=== PATIENT | female | born 1970 | race Caucasian/White ===

== ENCOUNTER 2017-06-26 17:47 | Day surgery (SDCO) | payer OTHER ==
[~2017-06-26] VITALS: Ht 147.3 cm; Wt 58.2 kg
[2017-06-26 18:39] LABS: INR 0.97 (0.9-1.2); PTT 32.6 SECONDS (24.3-32.1)
[2017-06-26 18:51] LABS: BASOPHIL 0.1 % (0-2); EOSINOPHIL 0 % (0-5); HGB 14.6 g/dl (12.5-16.0); LYMPHOCYTE 5.4 % (15-48); MCH 29.9 pg (25.0-31.0); MCV 88.1 fL (78.0-100.0); MONOCYTE 3.5 % (0-12); MPV 10.2 fL (6.0-9.5); PLT 375 K/uL (150-400); RBC 4.88 M/uL (4.20-5.40); RDW 14.5 % (11.5-14.0); WBC 17.5 K/uL (4.0-10.5)
[2017-06-26 19:38] LABS: ALBUMIN 4.2 g/dL (3.5-5.0); CREATININE 0.7 mg/dL (0.5-1.0); GLOBULIN (CALCULATION) 3.7 g/dL (2.2-4.2); MAGNESIUM 2.09 mg/dL (1.40-2.10); TOTAL PROTEIN 7.9 g/dL (6.4-8.3)
[2017-06-26 19:40] LABS: CKMB 2.25 ng/mL (0.97-4.94); MYOGLOBIN 35 ng/mL (26-65); TROPONIN T < 0.010 ng/mL
[2017-06-26 19:41] LABS: PRO-BNP 3616 pg/mL (0-125)
[2017-06-26 19:59] LABS: AMYLASE 36 U/L (28-100); LIPASE 19 U/L (13-60)
[2017-06-26 20:15] LABS: BILIRUBIN NEGATIVE (NEGATIVE); BLOOD NEGATIVE Ery/uL (NEGATIVE); CLARITY CLEAR (CLEAR); COLOR YELLOW (YELLOW); GLUCOSE (U) NORMAL (NORMAL); KETONE (U) NEGATIVE (NEGATIVE); LEUKOCYTES NEGATIVE Leu/uL (NEGATIVE); NITRITE NEGATIVE (NEGATIVE); PROTEIN NEGATIVE (NEGATIVE); SPECIFIC GRAVITY 1.015 (1.001-1.030); UROBILINOGEN 0.2 mg/dL (0.2-1.0)
[2017-06-27 06:17] LABS: BASOPHIL 0.2 % (0-2); EOSINOPHIL 0 % (0-5); HCT 41.9 % (37.0-47.0); HGB 14.1 g/dl (12.5-16.0); LYMPHOCYTE 16.2 % (15-48); MCH 29.5 pg (25.0-31.0); MCHC 33.7 g/dL (32.0-36.0); MCV 87.7 fL (78.0-100.0); MONOCYTE 4.4 % (0-12); MPV 9.9 fL (6.0-9.5); NEUTROPHIL 79.2 % (41-80); PLT 361 K/uL (150-400); RBC 4.78 M/uL (4.20-5.40); RDW 14.6 % (11.5-14.0); WBC 12.8 K/uL (4.0-10.5)
[2017-06-27 06:37] LABS: INR 1.19 (0.9-1.2); PROTHROMBIN TIME 14.2 SECONDS (11.4-13.2); PTT 36.2 SECONDS (24.3-32.1)
[2017-06-27 06:45] LABS: ALBUMIN 3.9 g/dL (3.5-5.0); BILIRUBIN - TOTAL 1.2 mg/dL (0.1-1.0); GLOBULIN (CALCULATION) 3.3 g/dL (2.2-4.2); MAGNESIUM 2.14 mg/dL (1.40-2.10); PHOSPHORUS 4.9 mg/dL (2.7-4.5); POTASSIUM 3.7 mmol/L (3.5-5.1); TOTAL PROTEIN 7.2 g/dL (6.4-8.3)
[2017-06-28 06:41] LABS: BASOPHIL 0.4 % (0-2); HCT 31.4 % (37.0-47.0); HGB 10.2 g/dl (12.5-16.0); LYMPHOCYTE 44.2 % (15-48); MCH 29.7 pg (25.0-31.0); MCHC 32.5 g/dL (32.0-36.0); MCV 91.3 fL (78.0-100.0); MPV 9.5 fL (6.0-9.5); NEUTROPHIL 46.4 % (41-80); PLT 236 K/uL (150-400); RBC 3.44 M/uL (4.20-5.40); RDW 14.6 % (11.5-14.0); WBC 5.6 K/uL (4.0-10.5)
[2017-06-28 07:02] LABS: ALBUMIN 2.8 g/dL (3.5-5.0); BILIRUBIN - TOTAL 0.5 mg/dL (0.1-1.0); CREATININE 0.9 mg/dL (0.5-1.0); GLOBULIN (CALCULATION) 2.5 g/dL (2.2-4.2); MAGNESIUM 2.2 mg/dL (1.40-2.10); PHOSPHORUS 3.8 mg/dL (2.7-4.5); POTASSIUM 3.4 mmol/L (3.5-5.1); TOTAL PROTEIN 5.3 g/dL (6.4-8.3)
== END 2017-06-28 10:05 | disposition home or self-care (01) ==
LOC: FER 17:47 → FMS 06-27 01:11
PROVIDERS: Emergency Medicine Emergency Medical Services; Internal Medicine; ADMIT Internal Medicine
DX: K35.80 Unspecified acute appendicitis (principal); I10 Essential (primary) hypertension; M19.90 Unspecified osteoarthritis, unspecified site; F41.9 Anxiety disorder, unspecified; K21.9 Gastro-esophageal reflux disease without esophagitis; F17.210 Nicotine dependence, cigarettes, uncomplicated; Z86.73 Personal history of transient ischemic attack (TIA), and cerebral infarction without residual deficits; Z88.0 Allergy status to penicillin; Z98.51 Tubal ligation status; Z79.2 Long term (current) use of antibiotics; Z79.899 Other long term (current) drug therapy
CPT/HCPCS: 36415; 71010; 80053; 81003; 82150; 82550; 82553; 83605; 83690; 83735; 83874; 83880; 84100; 84484; 85025; 85610; 85730; 88304; 93005; 94010; 97161; 97530-GP; C9113; G0378; J1170; J1644; J1940; J1956; J2270; J2405; J2704; J3010; Q9967

== ENCOUNTER 2021-03-13 22:50 | Emergency (ER) | payer OTHER ==
[2021-03-13 23:42] LABS: BASOPHIL 0.4 % (0-2); EOSINOPHIL 0.3 % (0-5); HGB 13.2 g/dl (12.5-16.0); LYMPHOCYTE 15.7 % (15-48); MCH 30.3 pg (25.0-31.0); MONOCYTE 7.1 % (0-12); MPV 10.2 fL (6.0-9.5); NEUTROPHIL 76.2 % (41-80); NRBC 0; PLT 264 K/uL (150-400); RBC 4.35 M/uL (4.20-5.40); RDW 13.9 % (11.5-14.0); WBC 11.6 K/uL (4.0-10.5)
[2021-03-13 23:58] LABS: BILIRUBIN NEGATIVE (NEGATIVE); BLOOD 1+ Ery/uL (NEGATIVE); CLARITY CLEAR (CLEAR); COLOR YELLOW (YELLOW); GLUCOSE (U) NORMAL (NORMAL); LEUKOCYTES 2+ Leu/uL (NEGATIVE); NITRITE NEGATIVE (NEGATIVE); PROTEIN NEGATIVE (NEGATIVE); SPECIFIC GRAVITY <=1.005 (1.001-1.030); UROBILINOGEN 0.2 mg/dL (0.2-1.0)
[2021-03-14 00:01] LABS: LACTIC ACID 2.1 mmol/L (0.4-1.9)
[2021-03-14 00:08] LABS: ALBUMIN 3.7 g/dL (3.4-5.0); BILIRUBIN - TOTAL 1.2 mg/dL (0.2-1.0); CREATININE 1.11 mg/dL (0.51-0.95); GLOBULIN (CALCULATION) 4.6 g/dL; POTASSIUM 2.8 mmol/L (3.5-5.1); TOTAL PROTEIN 8.3 g/dL (6.4-8.2)
[2021-03-14 00:14] LABS: AMORPHOUS URATES CRYSTALS TRACE; BACTERIA 1+; URINARY RBC RARE
[2021-03-14] MEDS ORDERED: NORCO 5-325 TA1 EACH PO (01:30)
[2021-03-14] MEDS ORDERED: PHENERGAN25 M1 PO (01:30)
[2021-03-14] MEDS ORDERED: CIPRO500 MG PO (01:30)
[2021-03-14] MEDS ORDERED: IBUPROFEN800 MG PO (01:30)
== END 2021-03-14 02:25 | disposition home or self-care (01) ==
LOC: FER 22:50
PROVIDERS: Emergency Medicine Emergency Medical Services
DX: N10 Acute pyelonephritis (principal); I10 Essential (primary) hypertension; F17.210 Nicotine dependence, cigarettes, uncomplicated; Z86.73 Personal history of transient ischemic attack (TIA), and cerebral infarction without residual deficits; Z90.49 Acquired absence of other specified parts of digestive tract; Z90.710 Acquired absence of both cervix and uterus; Z88.0 Allergy status to penicillin
CPT/HCPCS: 36415; 80053; 81001; 83605; 84145; 85025; 87040; 87076; 87088; 87186; 93005; J0696; J1885; J2270; J2405; J7030; Q0169

== ENCOUNTER 2021-04-27 07:46 | Emergency (ER) | payer OTHER ==
[~2021-04-27 07:46] MED LIST: CIPRO500 MG PO; IBUPROFEN800 MG PO; NORCO 5-325 TA1 EACH PO; PHENERGAN25 M1 PO
[2021-04-27 08:22] LABS: BASOPHIL 0.9 % (0-2); EOSINOPHIL 1.4 % (0-5); HCT 40.6 % (37.0-47.0); HGB 13.5 g/dl (12.5-16.0); LYMPHOCYTE 21.5 % (15-48); MCH 30.1 pg (25.0-31.0); MCHC 33.3 g/dL (32.0-36.0); MCV 90.6 fL (78.0-100.0); MONOCYTE 5.5 % (0-12); MPV 9.7 fL (6.0-9.5); NEUTROPHIL 70.4 % (41-80); NRBC 0; PLT 316 K/uL (150-400); RBC 4.48 M/uL (4.20-5.40); WBC 7.8 K/uL (4.0-10.5)
[2021-04-27 08:27] LABS: INR 1.22 (0.9-1.2); PROTHROMBIN TIME 14.8 SECONDS (11.8-13.4)
[2021-04-27 08:29] LABS: ALBUMIN 3.3 g/dL (3.4-5.0); BILIRUBIN - TOTAL 0.5 mg/dL (0.2-1.0); BUN/CREAT RATIO (CALC) 13.3 RATIO; CREATININE 0.83 mg/dL (0.51-0.95); GLOBULIN (CALCULATION) 3.8 g/dL; IRON % SATURATION 23.2 %SAT (20-50); MAGNESIUM 1.7 mg/dL (1.8-2.4); POTASSIUM 3.2 mmol/L (3.5-5.1); TOTAL PROTEIN 7.1 g/dL (6.4-8.2)
== END 2021-04-27 11:30 | disposition home or self-care (01) ==
LOC: FER 07:46
PROVIDERS: Emergency Medicine
DX: I95.1 Orthostatic hypotension (principal); F17.210 Nicotine dependence, cigarettes, uncomplicated; Z86.73 Personal history of transient ischemic attack (TIA), and cerebral infarction without residual deficits; Z86.79 Personal history of other diseases of the circulatory system; Z88.0 Allergy status to penicillin; Z79.899 Other long term (current) drug therapy
CPT/HCPCS: 36415; 80053; 83540; 83550; 83735; 84145; 84484; 85025; 85610; 93005; J7030

== ENCOUNTER 2021-05-09 08:33 | Emergency (ER) | payer OTHER ==
[2021-05-09 09:16] LABS: BASOPHIL 0.8 % (0-2); HCT 39.4 % (37.0-47.0); HGB 12.8 g/dl (12.5-16.0); LYMPHOCYTE 28.8 % (15-48); MCH 29.6 pg (25.0-31.0); MCHC 32.5 g/dL (32.0-36.0); MCV 91.2 fL (78.0-100.0); MONOCYTE 5.2 % (0-12); MPV 10.1 fL (6.0-9.5); NEUTROPHIL 62.5 % (41-80); NRBC 0; PLT 266 K/uL (150-400); RBC 4.32 M/uL (4.20-5.40); RDW 14.1 % (11.5-14.0); WBC 7.7 K/uL (4.0-10.5)
[2021-05-09 09:33] LABS: LACTIC ACID 2.6 mmol/L (0.4-1.9)
[2021-05-09 09:37] LABS: ALBUMIN 3.6 g/dL (3.4-5.0); BILIRUBIN - TOTAL 0.6 mg/dL (0.2-1.0); BUN/CREAT RATIO (CALC) 9.2 RATIO; CREATININE 0.87 mg/dL (0.51-0.95); GLOBULIN (CALCULATION) 3.1 g/dL; MAGNESIUM 1.7 mg/dL (1.8-2.4); TOTAL PROTEIN 6.7 g/dL (6.4-8.2)
[2021-05-09 11:40] LABS: BILIRUBIN NEGATIVE (NEGATIVE); BLOOD TRACE-INTACT Ery/uL (NEGATIVE); CLARITY CLEAR (CLEAR); COLOR YELLOW (YELLOW); GLUCOSE (U) NORMAL (NORMAL); LEUKOCYTES NEGATIVE Leu/uL (NEGATIVE); NITRITE NEGATIVE (NEGATIVE); PROTEIN NEGATIVE (NEGATIVE); UROBILINOGEN 0.2 mg/dL (0.2-1.0)
[2021-05-09 11:43] LABS: AMPHETAMINES NEGATIVE (NEGATIVE); BARBITURATES NEGATIVE (NEGATIVE); ECSTASY (MDMA) NEGATIVE (NEGATIVE); MARIJUANA (THC) NEGATIVE (NEGATIVE); METHADONE NEGATIVE (NEGATIVE); OPIATES NEGATIVE (NEGATIVE); OXYCODONE NEGATIVE (NEGATIVE)
[2021-05-09 11:50] LABS: BACTERIA 2+; URINARY RBC RARE; URINARY WBC RARE
== END 2021-05-09 14:03 | disposition home or self-care (01) ==
LOC: FER 08:33
PROVIDERS: Emergency Medicine
DX: S00.03XA Contusion of scalp, initial encounter (principal); R55 Syncope and collapse; E87.6 Hypokalemia; E78.5 Hyperlipidemia, unspecified; I10 Essential (primary) hypertension; F17.200 Nicotine dependence, unspecified, uncomplicated; Z79.82 Long term (current) use of aspirin; Z79.899 Other long term (current) drug therapy; Z86.73 Personal history of transient ischemic attack (TIA), and cerebral infarction without residual deficits; W19.XXXA Unspecified fall, initial encounter; Y92.89 Other specified places as the place of occurrence of the external cause; Y99.0 Civilian activity done for income or pay
CPT/HCPCS: 36415; 70450; 71045; 80053; 80305; 81001; 83605; 83735; 84484; 85025; 85379; 93005; J1885; J2405; J7030

== ENCOUNTER 2021-08-23 03:00 | Emergency (ER) | payer OTHER ==
[2021-08-23 04:10] LABS: ALBUMIN 3.8 g/dL (3.4-5.0); BILIRUBIN - TOTAL 0.4 mg/dL (0.2-1.0); BUN/CREAT RATIO (CALC) 11.3 RATIO; CREATININE 0.97 mg/dL (0.51-0.95); GLOBULIN (CALCULATION) 3.9 g/dL; POTASSIUM 3.6 mmol/L (3.5-5.1); TOTAL PROTEIN 7.7 g/dL (6.4-8.2)
[2021-08-23 04:18] LABS: HCT 39.9 % (37.0-47.0); HGB 13.3 g/dl (12.5-16.0); MCH 30.2 pg (25.0-31.0); MCHC 33.3 g/dL (32.0-36.0); MCV 90.7 fL (78.0-100.0); MPV 9.6 fL (6.0-9.5); RBC 4.4 M/uL (4.20-5.40); RDW 13.2 % (11.5-14.0); WBC 14.2 K/uL (4.0-10.5)
[2021-08-23] MEDS ORDERED: FLEXERIL5 MG PO (07:14)
[2021-08-23] MEDS ORDERED: ZOFRAN4 M1 PO (07:14)
[2021-08-23] MEDS ORDERED: OXYCODONE IR 5MG5 MG PO (07:14)
== END 2021-08-23 08:37 | disposition home or self-care (01) ==
LOC: FER 03:00
PROVIDERS: Emergency Medicine
DX: S22.41XA Multiple fractures of ribs, right side, initial encounter for closed fracture (principal); I10 Essential (primary) hypertension; I25.10 Atherosclerotic heart disease of native coronary artery without angina pectoris; J44.9 Chronic obstructive pulmonary disease, unspecified; F17.200 Nicotine dependence, unspecified, uncomplicated; Z88.0 Allergy status to penicillin; Z86.73 Personal history of transient ischemic attack (TIA), and cerebral infarction without residual deficits; V49.40XA Driver injured in collision with unspecified motor vehicles in traffic accident, initial encounter; Y92.410 Unspecified street and highway as the place of occurrence of the external cause
CPT/HCPCS: 36415; 71260; 80053; 83690; J1170; J2405; J7030; Q9967

== ENCOUNTER 2022-03-30 03:36 | Emergency (ER) | payer OTHER ==
[~2022-03-30 03:36] MED LIST changes: +FLEXERIL5 MG PO; +OXYCODONE IR 5MG5 MG PO; +ZOFRAN4 M1 PO
== END 2022-03-30 04:15 | disposition home or self-care (01) ==
LOC: FER 03:36
DX: G89.29 Other chronic pain (principal); M54.2 Cervicalgia; M54.9 Dorsalgia, unspecified; I10 Essential (primary) hypertension; F17.200 Nicotine dependence, unspecified, uncomplicated; Z28.310 Unvaccinated for COVID-19; Z88.0 Allergy status to penicillin
CPT/HCPCS: J1885

== ENCOUNTER 2022-05-06 17:28 | Emergency (ER) | payer OTHER ==
[2022-05-06 21:04] LABS: BASOPHIL 0.5 % (0-2); EOSINOPHIL 0.1 % (0-5); HCT 43.9 % (37.0-47.0); HGB 14.8 g/dl (12.5-16.0); LYMPHOCYTE 23.2 % (15-48); MCH 29.5 pg (25.0-31.0); MCHC 33.7 g/dL (32.0-36.0); MCV 87.5 fL (78.0-100.0); MONOCYTE 4.8 % (0-12); MPV 9.6 fL (6.0-9.5); NRBC 0; PLT 384 K/uL (150-400); RBC 5.02 M/uL (4.20-5.40); RDW 13.8 % (11.5-14.0); WBC 7.8 K/uL (4.0-10.5)
[2022-05-06 21:29] LABS: CREATININE 1.54 mg/dL (0.51-0.95); TOTAL PROTEIN 9.2 g/dL (6.4-8.2)
[2022-05-06 21:30] LABS: ALBUMIN 4.6 g/dL (3.4-5.0); BILIRUBIN - TOTAL 0.9 mg/dL (0.2-1.0); GLOBULIN (CALCULATION) 4.6 g/dL
[2022-05-07 00:02] LABS: BILIRUBIN NEGATIVE (NEGATIVE); BLOOD TRACE-INTACT Ery/uL (NEGATIVE); COLOR YELLOW (YELLOW); GLUCOSE (U) NORMAL (NORMAL); LEUKOCYTES 1+ Leu/uL (NEGATIVE); NITRITE NEGATIVE (NEGATIVE); PROTEIN TRACE (LOW) mg/dL (NEGATIVE); UROBILINOGEN 0.2 mg/dL (0.2-1.0); pH 6.5 (5.0-9.0)
[2022-05-07 00:10] LABS: CLARITY SLIGHTLY HAZY (CLEAR)
[2022-05-07 00:12] LABS: BACTERIA 4+; URINARY WBC 20-50
== END 2022-05-06 23:58 | disposition home or self-care (01) ==
LOC: FER 17:28
PROVIDERS: Emergency Medicine
DX: K29.70 Gastritis, unspecified, without bleeding (principal); Z88.0 Allergy status to penicillin; Z28.310 Unvaccinated for COVID-19
CPT/HCPCS: 36415; 80053; 81001; 83690; 84484; 85025; 87088; J1885; J2405; J7030